=== PATIENT | female | born 1985 | race Caucasian/White ===

== ENCOUNTER 2016-07-06 11:14 | Emergency (ER) | payer OTHER ==
[2016-07-06 12:06] VITALS: BP 137/83; PULSE 103; RESP 16; TEMP 98.2; O2SAT 96
--- NOTE | 2016-07-06 13:58 | US ---
Ultrasound Venous Duplex/Doppler Right Leg History: Pain and swelling. Findings: Ultrasound venous duplex and Doppler imaging of the common femoral vein, femoral vein, pop liteal vein, calf veins, greater saphenous vein origin, and contralateral common femoral vein demonst rates normal compressibility, color flow, and Doppler flow without deep venous thrombosis. Study limited due to large patient body habitus. Impression: No deep venous thrombosis right leg. Findings and recommendations discussed with Emergency Department physician, Amandeep Wiley PA-C at 1350 hour, today. Final report concurs with initial preliminary interpretation.
[2016-07-06 14:23] LABS: COLOR YELLOW; LEUKOCYTE ESTERASE,URINE NEGATIVE (NEGATIVE); NITRITE,URINE NEGATIVE (NEGATIVE)
--- NOTE | 2016-07-06 14:49 | EDPHY ---
H & P Chief Complaint Nursing Narrative: Pain in right leg anterior aspect below knee. Hurts to walk but is able to ..Denies injury. Denies recent travel . Time Seen by Provider: 07/06/16 12:50 HPI/ROS: Chief complaint: Right leg pain History of present illness: This is a 30-year-old female who presents to the clinic for right leg pain. Patient reports the onset of symptoms over the last day. States the pain is in the proximal aspect of the lower leg, just below the knee. Most pronounced on the anterior surface. She states it makes it difficult to ambulate. She denies other associated signs or symptoms including no open wounds, no paresthesias and no abnormal coolness to the leg. She states approximately 10 days ago she did slip and fall onto his leg but it felt fine without any discomfort until yesterday. No other trauma reported. Further no other associated signs or symptoms including no fevers, no chest pain , no shortness of breath, no cough or rash noted. - Personal History LMP (Females 10-55): Over 28 Days Ago - Medical/Surgical History Other PMH: PCP None. FLU NONE. Tetanus UTD. SURG Csection. Med Denies - Family History Significant Family History: No pertinent family hx - Social History Smoking Status: Heavy smoker - Physical Exam Exam: General Appearance: Alert, nontoxic. Eyes: Pupils equal and round no injection. Respiratory: Chest is non tender, lungs are clear to auscultation. Cardiovascular: Regular rate and rhythm. DP and PT pulses 2+ bilaterally. Capillary refill brisk in the right leg. Musculoskeletal: There is mild tenderness to the proximal aspect of the anterior right lower leg. Muscle compartments of the right leg are soft. The rest the leg is nontender. She can move all digits in the foot, she can move the ankle, she can flex and extend the knee although it causes discomfort as moving the hip. She is ambulating with minimal difficulty. Skin: No rashes or lesions. Neurologic alert and oriented x4. Sensation intact throughout the right leg. Constitutional: Initial Vital Signs Temperature (C) 36.8 C 07/06/16 11:57 Heart Rate 103 H 07/06/16 11:57 Respiratory Rate 16 07/06/16 11:57 Blood Pressure 137/83 H 07/06/16 11:57 O2 Sat (%) 96 07/06/16 11:57 Allergies/Adverse Reactions: No Known Allergies Allergy (Unverified 07/06/16 12:06) Home Medications: Medication Instructions Recorded NK [No Known Home Meds] 07/06/16 Medical Decision Making - Diagnostics Imaging: Ultrasound of the right leg is negative for DVT ED Course/Re-evaluation: Patient seen under the supervision of my secondary supervising physician Dr. Jarod Pugh. Patient presents to the clinic for right leg pain. The leg is neurovascularly intact. Ultrasound is negative for DVT. Patient is concerned she is , urine is obtained and positive. She has no complaints in regard to her at this time. I have offered x-rays of the right leg with shielding of the pelvis. She has declined x-rays. Patient will be discharged home. Home care is discussed. She is referred to Orthopedics for further evaluation and care. She will be given crutches. She has declined a knee immobilizer. Return precautions are given. Patient voiced understanding and agreement with plan. Differential Diagnosis: Included but not limited to contusion, sprain or strain, bony fracture, DVT - Data Points Laboratory Results: 07/06/16 14:20 Urine Color YELLOW Urine Appearance CLEAR Urine pH 7.0 (5.0-7.5) Ur Specific [place] 1.025 (1.002-1.030) Urine Protein NEGATIVE (NEGATIVE) Urine Ketones NEGATIVE (NEGATIVE) Urine Blood NEGATIVE (NEGATIVE) Urine Nitrate NEGATIVE (NEGATIVE) Urine Bilirubin NEGATIVE (NEGATIVE) Urine Urobilinogen 0.2 EU (0.2-1.0) Ur Leukocyte Esterase NEGATIVE (NEGATIVE) Urine Glucose NEGATIVE (NEGATIVE) Urine Test POSITIVE Departure - Departure Disposition: Home, Routine, Self-Care Clinical Impression: Right leg pain Condition: Good Instructions: Leg Pain (ED) Additional Instructions: Follow-up with orthopedics for continued evaluation and care of your leg pain Follow-up with an OBGYN for your You may use Tylenol if needed for pain, use sparingly, do not use ibuprofen, naproxen, aspirin or other NSAIDs in the setting of You were offered x-rays today, you declined If symptoms worsen or new symptoms develop return to this clinic or the closest emergency department for recheck Referrals: NONE *PRIMARY CARE P,. [Primary Care Provider] - As per Instructions Abiodun Sharma MD [Medical Doctor] - As per Instructions Stand Alone Forms: Work Excuse
== END 2016-07-06 15:17 | disposition home or self-care (01) ==
LOC: CED 11:14
DX: M79.604 Pain in right leg (principal); F17.200 Nicotine dependence, unspecified, uncomplicated
CPT/HCPCS: 81003-PO; 81025-PO; 93971-PO; G0463-PO